=== PATIENT | male | born 1945 | race Caucasian/White ===

== ENCOUNTER → 2018-03-04 | Outpatient (CLI) | payer MEDICARE | END | disposition home or self-care (01) | LOC: OIH 16:34 | PROVIDERS: ATTEND Internal Medicine | DX: S93.302A Unspecified subluxation of left foot, initial encounter (principal); M20.12 Hallux valgus (acquired), left foot; M85.872 Other specified disorders of bone density and structure, left ankle and foot; X58.XXXA Exposure to other specified factors, initial encounter; Y93.89 Activity, other specified; Y92.89 Other specified places as the place of occurrence of the external cause; Y99.8 Other external cause status | CPT/HCPCS: 73620 ==

== ENCOUNTER 2019-06-26 12:24 | Emergency (ER) | payer MEDICARE ==
[2019-06-26 13:04] LABS: BASOPHILS % (AUTO) 0.4 % (0.0-5.0); EOSINOPHILS % (AUTO) 3.1 % (0.0-8.0); HEMATOCRIT 41.9 % (42-54); LYMPHOCYTES % (AUTO) 17.8 % (21.0-51.0); MEAN CORPUSCULAR HEMOGLOBIN 28.9 pg (27.0-33.0); MEAN CORPUSCULAR HGB CONC 32.9 g/dL (32.0-36.0); MEAN CORPUSCULAR VOLUME 87.7 fL (79-99); MONOCYTES % (AUTO) 12.5 % (3.0-13.0); NEUTROPHILS % (AUTO) 65.5 % (40.0-77.0); PLATELET COUNT (AUTO) 149 K/uL (130-400); RED BLOOD CELL COUNT(AUTO) 4.78 MIL/uL (4.50-6.20); RED CELL DISTRIBUTION WIDTH 17.2 % (11.0-15.5); WHITE BLOOD COUNT (AUTO) 5.5 K/uL (4.8-10.8)
[2019-06-26 13:30] LABS: CREATININE 0.8 mg/dL (0.5-1.5); POTASSIUM 4.4 mmol/L (3.5-5.1)
[2019-06-26 13:35] LABS: ALBUMIN 3.6 g/dL (3.5-5.0); BILIRUBIN,DIRECT 0.2 mg/dL (0.0-0.3); BILIRUBIN,TOTAL 0.7 mg/dL (0.2-1.0); TOTAL PROTEIN, SERUM 7.5 g/dL (6.0-8.3)
[2019-06-26] MEDS ORDERED: LIDOCAINE HCL 1% 20 ML VIAL ONE (14:01)
[2019-06-26] MEDS ORDERED: LIDOCAINE HCL-MPF 1% 2ML VIAL ONE (15:42)
[2019-06-26] MEDS ORDERED: CEFTRIAXONE SODIUM 1 GM ONE (15:42)
== END 2019-06-26 16:13 | disposition home or self-care (01) ==
LOC: EDH 12:24
DX: L03.032 Cellulitis of left toe (principal); Z98.890 Other specified postprocedural states; I10 Essential (primary) hypertension; M19.90 Unspecified osteoarthritis, unspecified site; E11.9 Type 2 diabetes mellitus without complications; E78.00 Pure hypercholesterolemia, unspecified
CPT/HCPCS: 36415; 73630; 80048; 80076; 84550; 85025; 87070; 87076; 87077; 87186; 96372; 97597; 99285; J0696; J3490

== ENCOUNTER → 2019-07-05 | Outpatient (CLI) | payer MEDICARE | END | disposition home or self-care (01) | LOC: RAH 11:31 | PROVIDERS: ATTEND Podiatrist | DX: L89.894 Pressure ulcer of other site, stage 4 (principal); L03.032 Cellulitis of left toe; M20.12 Hallux valgus (acquired), left foot; M20.11 Hallux valgus (acquired), right foot; M20.41 Other hammer toe(s) (acquired), right foot; M20.42 Other hammer toe(s) (acquired), left foot | CPT/HCPCS: 93922 ==

== ENCOUNTER → 2019-07-22 | Outpatient (CLI) | payer MEDICARE | END | disposition home or self-care (01) | LOC: OIH 12:34 | PROVIDERS: ATTEND Internal Medicine | DX: R05 Cough (principal) | CPT/HCPCS: 71046 ==

== ENCOUNTER 2020-07-23 18:17 | Inpatient (IN) | payer MEDICARE ==
[~2020-07-23] VITALS: Ht 175.3 cm; Wt 70.3 kg
[2020-07-23] MEDS ORDERED: DEXAMETHASONE SOD PHOSPHATE 4 MG/ML 1ML VIAL ONE (18:38)
[2020-07-23] MEDS ORDERED: AZITHROMYCIN 500MG+NS 250ML 250 ML IV ONE (18:38)
[2020-07-23] MEDS ORDERED: CEFTRIAXONE 1G VIAL ONE (18:38)
[2020-07-23] MEDS ORDERED: ACETAMINOPHEN 325 MG TAB ONE (18:39)
[2020-07-23 18:51] LABS: APPEARANCE,URINE Clear (CLEAR); BILIRUBIN,URINE Negative (NEGATIVE); COLOR,URINE Yellow (YELLOW); GLUCOSE, URINE (UA) >=1000 mg/dL (NEGATIVE); KETONES,URINE Trace mg/dL (NEGATIVE); LEUKOCYTE ESTERASE ,URINE Negative (NEGATIVE); NITRATE,URINE Negative (NEGATIVE); OCCULT BLOOD,URINE Negative (NEGATIVE); PROTEIN,URINE POS 1+ mg/dL (NEGATIVE)
[2020-07-23 19:10] LABS: ABG BASE EXCESS -3.7 mmol/L (-2.0-3.0); ABG HCO3 19.4 mmol/L (21.0-28.0); ABG OXYGEN SATURATION 98.5 % (95.0-99.0); ABG PCO2 31 mmHg (35-48)
[2020-07-23 19:13] LABS: BASOPHILS % (AUTO) 0.5 % (0.0-5.0); HEMATOCRIT 33.3 % (42-54); LYMPHOCYTES % (AUTO) 5.6 % (21.0-51.0); MEAN CORPUSCULAR HEMOGLOBIN 30.6 pg (27.0-33.0); MEAN CORPUSCULAR HGB CONC 31.8 g/dL (32.0-36.0); MEAN CORPUSCULAR VOLUME 96.2 fL (79-99); MONOCYTES % (AUTO) 9.8 % (3.0-13.0); NEUTROPHILS % (AUTO) 82.6 % (40.0-77.0); NUCLEATED RED BLOOD CELLS 0.5 % (0.0-0.19); PLATELET COUNT (AUTO) 76 K/uL (130-400); RED BLOOD CELL COUNT(AUTO) 3.46 MIL/uL (4.50-6.20); RED CELL DISTRIBUTION WIDTH 23.1 % (11.0-15.5); WHITE BLOOD COUNT (AUTO) 4.1 K/uL (4.8-10.8)
[2020-07-23 19:26] LABS: INR 0.98 (0.85-1.15); PROTHROMBIN TIME 10.7 SEC (9.6-11.6)
[2020-07-23 19:30] LABS: POTASSIUM 3.9 mmol/L (3.5-5.1)
[2020-07-23 19:31] LABS: BACTERIA,URINE Few /HPF (None Seen); MUCUS,URINE Moderate LPF (None Seen); RBC,URINE 0-1 /HPF (0-1); SQUAMOUS EPITHELIAL CELL,UR Few /HPF (0-2)
[2020-07-23 19:37] LABS: ALBUMIN 3.5 g/dL (3.5-5.0); BILIRUBIN,TOTAL 0.9 mg/dL (0.2-1.0); CRP QUANTITATIVE 27.4 mg/L (0.00-9.0); TOTAL PROTEIN, SERUM 7.2 g/dL (6.0-8.3)
[2020-07-23 19:42] LABS: PARTIAL THROMBOPLASTIN TIME 88.2 SEC (26.3-35.5)
[2020-07-23 19:52] LABS: B-TYPE NATRIURETIC PEPTIDE 20 pg/mL (0-100)
[2020-07-23] MEDS ORDERED: ACETAMINOPHEN 325 MG TAB PO PRN ×2 (20:30)
[2020-07-23] MEDS ORDERED: LACTULOSE 20 GM/30 ML UDCUP PO PRN (20:30)
[2020-07-23] MEDS ORDERED: DIPHENHYDRAMINE HCL 25 MG CAPSULE PO PRN (20:30)
[2020-07-23] MEDS ORDERED: AZITHROMYCIN 500MG+NS 250ML 250 ML IV SCH (20:30)
[2020-07-23] MEDS ORDERED: GUAIFENESIN-DM 200/20 MG 10 ML PO PRN (20:30)
[2020-07-23] MEDS ORDERED: HYDROCODONE/ACETAMINOPHEN 5/325 MG TAB PO PRN (20:30)
[2020-07-23] MEDS ORDERED: ACETAMINOPHEN WITH CODEINE 1 TAB TAB PO PRN (20:30)
[2020-07-23] MEDS ORDERED: ERGOCALCIFEROL (VITAMIN D2) 50,000 UNIT CAPSULE PO ONE (20:30)
[2020-07-23] MEDS ORDERED: SOLU-MEDROL 125MG VIAL IV SCH (20:30)
[2020-07-23] MEDS ORDERED: CEFTRIAXONE 1G VIAL IV SCH (20:30)
[2020-07-23] MEDS ORDERED: ONDANSETRON 4MG INJ IV PRN (20:30)
[2020-07-23] MEDS ORDERED: FAMOTIDINE 20MG VIAL IV SCH (21:00)
[2020-07-23] MEDS ORDERED: FUROSEMIDE 40MG VIAL IVP SCH (21:00)
[2020-07-23] MEDS ORDERED: BENZONATATE 100 MG CAPSULE PO SCH (21:00)
[2020-07-23] MEDS ORDERED: INSULIN HUMULIN R 100 UNIT/ML 3ML SQ SCH (21:00)
[2020-07-23] MEDS ORDERED: ALBUTEROL INHALER 90MCG/INH IH PRN (21:30)
[2020-07-23] MEDS ORDERED: FUROSEMIDE 40MG VIAL ONE (21:32)
[2020-07-23] MEDS ORDERED: BENZONATATE 100 MG CAPSULE PO ONE (21:32)
[2020-07-23] MEDS ORDERED: ERGOCALCIFEROL (VITAMIN D2) 50,000 UNIT CAPSULE ONE (21:32)
[2020-07-23] MEDS ORDERED: FAMOTIDINE 20MG VIAL IV ONE (21:33)
[2020-07-23] MEDS ORDERED: ENOXAPARIN SODIUM 40 MG/0.4 ML SYRINGE SQ ONE (21:33)
[2020-07-23] MEDS ORDERED: INSULIN HUMULIN 70/30 100 UNIT/ML 3ML SQ ONE (21:35)
[2020-07-23 21:48] LABS: ABG BASE EXCESS -1.7 mmol/L (-2.0-3.0); ABG HCO3 21.8 mmol/L (21.0-28.0); ABG OXYGEN SATURATION 85.2 % (95.0-99.0); ABG PCO2 34 mmHg (35-48)
[2020-07-24 04:30] LABS: ABG BASE EXCESS -0.8 mmol/L (-2.0-3.0); ABG HCO3 21.6 mmol/L (21.0-28.0); ABG OXYGEN SATURATION 96.3 % (95.0-99.0); ABG PCO2 30 mmHg (35-48)
[2020-07-24] MEDS ORDERED: SOLU-MEDROL 40MG VIAL ONE (04:46)
[2020-07-24 05:29] LABS: BASOPHILS % (AUTO) 0.3 % (0.0-5.0); HEMATOCRIT 33.1 % (42-54); LYMPHOCYTES % (AUTO) 14.1 % (21.0-51.0); MEAN CORPUSCULAR HEMOGLOBIN 30.3 pg (27.0-33.0); MEAN CORPUSCULAR HGB CONC 32.6 g/dL (32.0-36.0); MONOCYTES % (AUTO) 22.8 % (3.0-13.0); NEUTROPHILS % (AUTO) 61.8 % (40.0-77.0); NUCLEATED RED BLOOD CELLS 0.6 % (0.0-0.19); PLATELET COUNT (AUTO) 101 K/uL (130-400); RED BLOOD CELL COUNT(AUTO) 3.56 MIL/uL (4.50-6.20); RED CELL DISTRIBUTION WIDTH 22.9 % (11.0-15.5); WHITE BLOOD COUNT (AUTO) 3.1 K/uL (4.8-10.8)
[2020-07-24 05:38] LABS: CRP QUANTITATIVE 29.4 mg/L (0.00-9.0); POTASSIUM 3.5 mmol/L (3.5-5.1)
[2020-07-24 05:53] LABS: B-TYPE NATRIURETIC PEPTIDE 30 pg/mL (0-100)
[2020-07-24] MEDS ORDERED: ASCORBIC ACID 500 MG TAB ONE (08:04)
[2020-07-24] MEDS ORDERED: ZINC SULFATE 220 CAPSULE ONE (08:04)
[2020-07-24] MEDS ORDERED: FUROSEMIDE 40MG VIAL ONE (08:04)
[2020-07-24] MEDS ORDERED: BENZONATATE 100 MG CAPSULE PO ONE ×2 (08:04→14:40)
[2020-07-24] MEDS ORDERED: FAMOTIDINE 20MG VIAL IV ONE (08:05)
[2020-07-24] MEDS ORDERED: SOLU-MEDROL 125MG VIAL ONE (08:05)
[2020-07-24] MEDS ORDERED: ENOXAPARIN SODIUM 40 MG/0.4 ML SYRINGE SQ ONE (08:05)
[2020-07-24] MEDS ORDERED: INSULIN HUMULIN R 100 UNIT/ML 3ML ONE ×3 (08:06→17:04)
[2020-07-24] MEDS ORDERED: ENOXAPARIN SODIUM 40 MG/0.4 ML SYRINGE SQ SCH (09:00)
[2020-07-24] MEDS ORDERED: ASCORBIC ACID 500 MG TAB PO SCH (09:00)
[2020-07-24] MEDS ORDERED: ZINC SULFATE 220 CAPSULE PO SCH (09:00)
[2020-07-24] MEDS ORDERED: GLUCAGON 1MG KIT 1 MG ML IM PRN (14:45)
[2020-07-24] MEDS ORDERED: DEXTROSE 50%-WATER 50 ML DISP.SYRIN IV PRN (14:45)
[2020-07-24] MEDS ORDERED: INSULIN HUMULIN R 100 UNIT/ML 3ML SQ SCH (16:30)
[2020-07-24 18:11] LABS: ABG BASE EXCESS -11.1 mmol/L (-2.0-3.0); ABG PCO2 20 mmHg (35-48)
[2020-07-24] MEDS ORDERED: LORAZEPAM 2 MG/ML 1 ML VIAL ONE ×2 (18:24→19:26)
[2020-07-24] MEDS ORDERED: KETOROLAC 30MG VIAL (30MG/ML) ONE (18:24)
[2020-07-24] MEDS ORDERED: SODIUM BICARB 50MEQ 50ML VIAL 100 ML ONE (18:35)
[2020-07-24] MEDS ORDERED: METOPROLOL TARTRATE 1 MG/ML 5ML VIAL IV ONE (18:35)
[2020-07-24] MEDS ORDERED: 0.9%NACL 1000ML 1,000 ML IV ONE (19:19)
[2020-07-24] MEDS ORDERED: DILTIAZEM 50MG VIAL IV ONE (19:20)
[2020-07-24] MEDS ORDERED: NOREPINEPHRIN 4MG/NS 250ML 250 ML IV ONE ×2 (19:36→23:13)
[2020-07-24] MEDS ORDERED: DILTIAZEM 125 MG/25 ML INJ IV ONE (19:38)
[2020-07-24] MEDS ORDERED: 0.9%NACL 100ML 100 ML IV ONE (19:39)
[2020-07-24] MEDS ORDERED: ETOMIDATE 20MG VIAL IVP SCH (20:00)
[2020-07-24] MEDS ORDERED: FENTANYL 2500MCG+NS 250ML 250 ML IV ONE (20:12)
[2020-07-24] MEDS ORDERED: AMIODARONE 150MG VIAL 150 MG in DEXTROSE 5%-WATER 100 ML IV SCH (20:15)
[2020-07-24] MEDS ORDERED: AMIODARONE 900MG VIAL 360 MG in DEXTROSE 5%-WATER 200 ML IV SCH (20:17)
[2020-07-24] MEDS ORDERED: MIDAZOLAM 100MG-0.9% NS 100ML 100ML BAG IV STA (20:26)
[2020-07-24] MEDS ORDERED: ROCURONIUM BROMIDE 100 MG in 0.9%NACL 100ML 100 ML IV SCH (20:30)
[2020-07-24] MEDS ORDERED: FENTANYL 2500MCG+NS 250ML 250 ML IV SCH (20:45)
[2020-07-24] MEDS ORDERED: MIDAZOLAM 100MG-0.9% NS 100ML 100 ML IV SCH (20:45)
[2020-07-24] MEDS ORDERED: INSULIN GLARGINE 100 UNITS/ML 10 ML VIAL SQ SCH (21:00)
[2020-07-24 21:18] LABS: ABG BASE EXCESS -7.4 mmol/L (-2.0-3.0); ABG HCO3 20.5 mmol/L (21.0-28.0); ABG OXYGEN SATURATION 99.4 % (95.0-99.0); ABG PCO2 54 mmHg (35-48)
[2020-07-25] VITALS (14 sets, daily range): BP systolic 0–117; BP diastolic 0–83
[2020-07-25] MEDS ORDERED: VASOPRESSIN 20 UNITS/ML 1ML VIAL ONE ×2 (00:40→02:09)
[2020-07-25] MEDS ORDERED: NOREPINEPHRIN 4MG/NS 250ML 250 ML IV ONE ×5 (00:43→04:01)
[2020-07-25] MEDS ORDERED: VASOPRESSIN 40 UNITS in 0.9%NACL 50ML 40 ML IV SCH (00:45)
[2020-07-25] MEDS ORDERED: 0.9%NACL 1000ML 1,000 ML IV SCH ×4 (00:45→03:30)
[2020-07-25] MEDS ORDERED: 0.9%NACL 50ML 50 ML IV ONE (00:46)
[2020-07-25] MEDS ORDERED: PHENYLEPHRINE HCL 10 MG/ML 1ML VIAL IV ONE ×2 (01:11→02:14)
[2020-07-25] MEDS ORDERED: 0.9% NACL 250ML 250 ML IV ONE ×2 (01:12→02:25)
[2020-07-25] MEDS ORDERED: PHENYLEPHRINE HCL 50 MG in 0.9% NACL 250ML 250 ML IV PRN (01:30)
[2020-07-25] MEDS ORDERED: EPINEPHRINE PF 1MG AMP ONE ×2 (01:35→01:36)
[2020-07-25] MEDS ORDERED: EPINEPHRINE PF 1MG AMP 10 MG in 0.9% NACL 250ML 250 ML IV SCH (01:45)
[2020-07-25] MEDS ORDERED: AMIODARONE 900MG VIAL 450 MG in DEXTROSE 5%-WATER 250 ML IV SCH (02:00)
[2020-07-25] MEDS ORDERED: EPINEPHRINE 1 MG/ML 30ML VIAL IJ ONE (02:07)
[2020-07-25] MEDS ORDERED: NOREPINEPHRINE BITARTRATE 1 MG/1 ML ML IV ONE ×2 (02:16→02:33)
[2020-07-25] MEDS ORDERED: 0.9% NACL 250ML 500 ML IV ONE (02:20)
[2020-07-25] MEDS ORDERED: SOLU-MEDROL 125MG VIAL IVP STA (04:59)
[2020-07-25] MEDS ORDERED: SOLU-MEDROL 125MG VIAL IVP SCH (05:15)
[2020-07-27] MEDS ORDERED: SOLU-MEDROL 125MG VIAL IVP SCH (11:00)
== END 2020-07-25 05:35 | disposition expired | DRG 208 ==
LOC: EDH 18:17 → OBSVTOIN 20:25 → EDHIP 20:25 → 2CV 07-24 23:30
PROVIDERS: ADMIT Internal Medicine Critical Care Medicine; ATTEND Internal Medicine Critical Care Medicine
PROC: 5A12012 Performance of Cardiac Output, Single, Manual (ICD-10-PCS; principal; 2020-07-25)
PROC: 5A1935Z Respiratory Ventilation, Less than 24 Consecutive Hours (ICD-10-PCS; 2020-07-25)
PROC: 0BH17EZ Insertion of Endotracheal Airway into Trachea, Via Natural or Artificial Opening (ICD-10-PCS; 2020-07-25)
PROC: 5A09357 Assistance with Respiratory Ventilation, Less than 24 Consecutive Hours, Continuous Positive Airway Pressure (ICD-10-PCS; 2020-07-25)
DX: U07.1 COVID-19 (principal); J12.82 Pneumonia due to coronavirus disease 2019; J96.01 Acute respiratory failure with hypoxia; J44.1 Chronic obstructive pulmonary disease with (acute) exacerbation; R64 Cachexia; J44.0 Chronic obstructive pulmonary disease with (acute) lower respiratory infection; M19.90 Unspecified osteoarthritis, unspecified site; R53.81 Other malaise; I27.20 Pulmonary hypertension, unspecified; Z66 Do not resuscitate; I48.91 Unspecified atrial fibrillation; I46.9 Cardiac arrest, cause unspecified; M48.00 Spinal stenosis, site unspecified; Z68.22 Body mass index [BMI] 22.0-22.9, adult; Z79.4 Long term (current) use of insulin; Z87.891 Personal history of nicotine dependence
CPT/HCPCS: 31500; 36415; 36600; 71045; 80048; 80053; 81001; 82435; 82550; 82803; 82947; 82948; 83605; 83615; 83880; 84132; 84145; 84295; 84484; 85018; 85025; 85378; 85610; 85730; 86140; 87040; 92950; 93005; 94002; 94003; 94660; 99291; G0378; J0171; J0282; J0456; J0696; J1100; J1650; J1815; J1885; J1940; J2060; J2370; J2920; J2930; J3010; J3490; J7030; J7050; J7060